=== PATIENT | female | born 1955 | race American Indian/Alaskan Native ===

== ENCOUNTER 2016-11-05 14:09 | Emergency (ER) | payer OTHER ==
[2016-11-05 14:29] VITALS: RESP 16; TEMP 98.7; O2SAT 99
--- NOTE | 2016-11-05 15:01 | ED PDOC ---
Upper Extremity Pain/Injury Time Seen by Provider: 11/05/16 14:41 Chief Complaint (Nursing): Upper Extremity Problem/Injury Chief Complaint (Provider): shoulder pain History Per: Patient History/Exam Limitations: no limitations Additional Complaint(s): 61yo F in ED for fall eval of fall injury sustained today at store while walking tripped on rug and fell onto right arm now with pain with ROM no numbness no tingling. pt had ROM. no clavicle tenderness no back pain Past Medical History Reviewed: Historical Data, Nursing Documentation, Vital Signs Vital Signs: Last Vital Signs Temp 98.7 F 11/05/16 14:25 Pulse 99 H 11/05/16 14:25 Resp 16 11/05/16 14:25 BP 153/99 H 11/05/16 14:25 Pulse Ox 99 11/05/16 14:25 - Medical History PMH: No Chronic Diseases - Family History Family History: States: No Known Family Hx - Allergies Allergies/Adverse Reactions: Allergies Allergy/AdvReac Type Severity Reaction Status Date / Time No Known Allergies Allergy Verified 11/05/16 14:29 Review of Systems ROS Statement: Except As Marked, All Systems Reviewed And Found Negative Respiratory: Negative for: Cough, Shortness of Breath Musculoskeletal: Positive for: Shoulder Pain, Arm Pain Physical Exam - Reviewed Nursing Documentation Reviewed: Yes Vital Signs Reviewed: Yes - Physical Exam Appears: Positive for: Well, Non-toxic, No Acute Distress Head Exam: Positive for: ATRAUMATIC, NORMAL INSPECTION, NORMOCEPHALIC Cardiovascular/Chest: Positive for: Regular Rate, Rhythm Respiratory: Positive for: CNT, Normal Breath Sounds Extremity: Positive for: Other (right arm: no swelling no defomrity no dec ROM no AC joint tenderness no elbow tenderness good pronation and supination. ) Neurologic/Psych: Positive for: Alert, Oriented - ECG O2 Sat by Pulse Oximetry: 99 - Radiology X-Ray: Interpreted by Ut X-Ray Interpretation: No Acute Disease Medical Decision Making Medical Decision Making: dx: contusion tx: sling and ultram for pain and ice in ED advised to sung with pmd. Disposition - Clinical Impression Clinical Impression: Shoulder injury, Chronic shoulder pain - Patient ED Disposition Is Patient to be Admitted: No Counseled Patient/Family Regarding: Studies Performed, Diagnosis, Need For Followup - Disposition Disposition: Routine/Home Disposition Time: 15:27 Condition: STABLE Instructions: Shoulder Sprain (ED), Shoulder Pain (ED) Forms: [employer] (Kiswahili)
--- NOTE | 2016-11-05 15:44 | RAD ---
PROCEDURE: Radiographs of the Right Shoulder HISTORY: shoulder pain COMPARISON: Correlation made with concurrent radiographs of the right humerus FINDINGS: BONES: Normal. No fracture. 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 SOFT TISSUES: Normal. OTHER FINDINGS: None. 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 If symptoms persist or occult fracture suspected clinically recommend repeat radiographs in 5-10 days as most fractures should become radiographically evident this timeframe.
--- NOTE | 2016-11-05 15:49 | RAD ---
PROCEDURE: Radiographs of the right elbow. HISTORY: elbow pain COMPARISON: Correlation made with concurrent radiographs of the right humerus FINDINGS: BONES: No definitive radiographic evidence of acute displaced fracture nor dislocation. JOINTS: Mild degenerative osteoarthritis with spurring of the coronoid process of the olecranon. SOFT TISSUES: Normal. JOINT EFFUSION: No posterior nor significant anterior joint effusion seen. OTHER FINDINGS: None. IMPRESSION: No definitive radiographic evidence of acute displaced fracture nor dislocation. If symptoms persist or occult fracture suspected clinically recommend repeat radiographs in 5-10 days as most fractures should become radiographically evident in this timeframe. Alternatively, CT scan could be obtained. No significant joint effusion. Mild DJD as detailed above.
--- NOTE | 2016-11-05 15:51 | RAD ---
PROCEDURE: Radiographs of the right humerus. HISTORY: arm pain COMPARISON: Correlation made with concurrent radiographs of the right shoulder FINDINGS: BONES: There is a tiny curvilinear density adjacent to greater tuberosity which could represent calcific tendinitis or bursitis. The possibility of a tiny avulsion injury cannot be completely excluded If symptoms persist or occult fracture suspected clinically consider followup CT scan of the right shoulder SOFT TISSUES: Soft tissues appear grossly unremarkable. OTHER FINDINGS: None. IMPRESSION: Tiny curvilinear density adjacent to greater tuberosity which could represent calcific tendinitis or bursitis. Tiny avulsion injury cannot be completely excluded. If symptoms persist or occult fracture suspected clinically consider followup CT scan of the right shoulder. Note this report was placed in PA review folder followup
[2016-11-05 16:08] VITALS: BP 132/76; PULSE 87
== END 2016-11-05 16:00 | disposition home or self-care (01) ==
LOC: H.ER 14:09
DX: S49.91XA Unspecified injury of right shoulder and upper arm, initial encounter (principal); W19.XXXA Unspecified fall, initial encounter; Y92.513 Shop (commercial) as the place of occurrence of the external cause

== ENCOUNTER 2016-11-06 15:52 | Emergency (ER) | payer OTHER ==
--- NOTE | 2016-11-06 16:24 | ED PDOC ---
Upper Extremity Pain/Injury Time Seen by Provider: 11/06/16 16:17 Chief Complaint (Nursing): Upper Extremity Problem/Injury Chief Complaint (Provider): right shoulder pain History Per: Patient Additional Complaint(s): 61-year-old right-hand dominant female presents to emergency department with persistent right shoulder pain. Patient was seen yesterday for injury to right shoulder and was initially told that x-ray was negative for fracture or dislocation. Patient then received a call stating that there is a possibility of an avulsion fracture to shoulder and she should return to ED for further evaluation. Patient has been taking Advil today but this has not provided adequate relief of her pain. Past Medical History Reviewed: Historical Data, Nursing Documentation, Vital Signs Vital Signs: Last Vital Signs Temp 99.0 F 11/06/16 16:05 Pulse 61 11/06/16 16:05 Resp 18 11/06/16 16:05 BP 139/69 11/06/16 16:05 Pulse Ox 99 11/06/16 16:05 - Medical History PMH: No Chronic Diseases - Surgical History Other surgeries: tubal ligation, fibroid removal - Family History Family History: States: No Known Family Hx - Living Arrangements Living Arrangements: With Family - Social History Alcohol: None Drugs: Denies - Home Medications Home Medications: Ambulatory Orders Medication Instructions Recorded Ibuprofen [Motrin Tab] 800 mg PO Q8 PRN #20 tab 11/06/16 traMADol [Ultram] 50 mg PO TID PRN #15 tab 11/06/16 - Allergies Allergies/Adverse Reactions: Allergies Allergy/AdvReac Type Severity Reaction Status Date / Time No Known Allergies Allergy Verified 11/05/16 14:29 Review of Systems ROS Statement: Except As Marked, All Systems Reviewed And Found Negative Musculoskeletal: Positive for: Other (right shoulder pain) Physical Exam - Reviewed Nursing Documentation Reviewed: Yes Vital Signs Reviewed: Yes - Physical Exam Appears: Positive for: Well, Non-toxic, No Acute Distress Skin: Negative for: Rash Eye Exam: Positive for: Normal appearance, EOMI, PERRL Neck: Positive for: Normal Cardiovascular/Chest: Positive for: Regular Rate, Rhythm Respiratory: Positive for: Normal Breath Sounds Extremity: Positive for: Other (Diffuse tenderness to right shoulder and humerus region with decreased range of motion, full rom right elbow, wrist and all digits of right hand 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 X-ray of right shoulder and humerus from yesterday shows: IMPRESSION: Tiny curvilinear density adjacent to greater tuberosity which could represent calcific tendinitis or bursitis. Tiny avulsion injury cannot be completely excluded. If symptoms persist or occult fracture suspected clinically consider followup CT scan of the right shoulder. Note this report was placed in PA review folder followup Plan: IM toradol CT right shoulder and humerus CT: FINDINGS: Bones/joints: Acute minimally displaced fracture of the anterior- inferior glenoid (bony Bankart lesion). Degenerative change of the humerus particularly the greater tuberosity. Degenerative narrowing, sclerotic and subchondral cystic change of the acromioclavicular joint. No dislocation. Soft tissues: Unremarkable. IMPRESSION: Acute minimally displaced fracture of the anterior-inferior glenoid. Patient given copy of CT report along with discs and she was referred to orthopedist on-call for follow-up. Prescriptions given for Motrin and Tramadol. Patient has sling in place. Disposition - Clinical Impression Clinical Impression: Shoulder fracture - Patient ED Disposition Is Patient to be Admitted: No Counseled Patient/Family Regarding: Studies Performed, Diagnosis, Need For Followup, Rx Given - Disposition Referrals: Jose Fairbanks MD [Staff Provider] - Disposition: Routine/Home Disposition Time: 19:42 Condition: STABLE Additional Instructions: Ice and rest the affected area as much as possible. Take prescription meds as directed as needed for pain. Follow-up in one to 2 days with orthopedist. Prescriptions: Ibuprofen [Motrin Tab] 800 mg PO Q8 PRN #20 tab PRN Reason: Pain, Moderate (4-7) traMADol [Ultram] 50 mg PO TID PRN #15 tab PRN Reason: Pain, Moderate (4-7) Instructions: Arm Fracture in Adults (ED) Forms: [employer] (Irish), [facility] ED School/Work Excuse
[2016-11-06 19:03] VITALS: BP 130/78; PULSE 78; RESP 19; TEMP 97.7
[2016-11-06 19:30] VITALS: O2SAT 99
[2016-11-06] MEDS ORDERED: Iohexol 240 (50 ml) ONE (22:58)
--- NOTE | 2016-11-07 08:12 | CT ---
PROCEDURE: CT of the right shoulder and humerus without contrast HISTORY: ? fracture of shoulder and humerus COMPARISON: Comparison is made to x-ray of the right shoulder and right humerus dated 11/05/2016 TECHNIQUE: Axial and reformatted coronal and sagittal CT images of the right shoulder and right humerus were obtained without IV contrast administration. FINDINGS: There is intra-articular anterior inferior glenoid rain fracture. There are adjacent small bony fragments. No evidence of glenohumeral joint dislocation. Moderate to mildly severe osteoarthritic changes at the AC joint associated with inferior spur and mild narrowing of the subacromial space. There are subcortical cystic formation seen at the greater tuberosity of the right humeral head. There are also subcortical cystic formation adjacent to the articular surface of the kidney note head. There are small calcifications seen adjacent to the humeral head suggestive of calcified tendinitis. IMPRESSION: Acute anterior inferior intra-articular rim fracture of the glenoid extending slightly in to the glenoid processed and associated with multiple small bony fragments. Moderate to mildly severe osteoarthritic changes at the AC joint. Multiple subcortical cystic formation seen at the humeral head likely due to degenerative changes. Calcified tendinitis noted adjacent to the greater tuberosity of the humeral head. Preliminary report was submitted by [facility].
== END 2016-11-06 19:48 | disposition home or self-care (01) ==
LOC: H.ER 15:52
DX: S42.201A Unspecified fracture of upper end of right humerus, initial encounter for closed fracture (principal); W19.XXXA Unspecified fall, initial encounter; Y92.89 Other specified places as the place of occurrence of the external cause